=== PATIENT | male | born 1980 | race Caucasian/White ===

== ENCOUNTER 2022-01-08 09:29 | Emergency (ER) | payer OTHER, SELFPAY ==
[2022-01-08 09:36] VITALS: BP 160/88; PULSE 79; RESP 18; TEMP 37.2; O2SAT 97
--- NOTE | 2022-01-08 10:03 | W.ED.GENAD ---
Discharge Plan Disposition Patient Disposition: [facility] Condition: Stable Discharge Details Clinical Impression: Uveitis Primary Care Provider: None,None ED Provider: Yoko Kraus Home Meds and New Rx's Prescriptions: No Action buprenorphine HCl [Subutex] 8 mg Tablet, Sublingual 16 mg SUBLINGUAL DAILY Discharge Instructions Instructions: Antibiotic/Anti-inflammatory Combinations (Into the eye), Iritis (ED) Additional Instructions: Your exam appears more consist with inflammatory cause over infectious etiology. We will have you reevaluated by eye doctor. You will need to apply the steroid and antibiotic four times daily until reevaluation. Please encouarge hydration. Tylenol and/or Ibuprofen as needed to help with discomfort. If you develop headache, fevers/chills, rash, swelling or other new/worsening symptoms please seek care urgently once again. Discharge Data Discharge Date/Time-TO BE ENTERED AT DEPARTURE: 01/08/22 12:24 Medical Decision Making Patient is a pleasant 41-year-old gentleman, currently inmate and accompanied by correctional officers, presented with chief complaint of right pain. He reports the pain began approximately 3 days ago. States that he felt foreign body sensation initially, believes it may have been a devin of paint on the desk. Restarted on antibiotics drop at the correctional facility. Despite this, patient reports the pain has continued to increase. He describes blurred vision and difficulty with vision associated with him not able to open the eye completely. Has not had any purulent discharge. No fevers or chills. No headaches. States that initially he felt steroids something on the upper lid that was irritating the eye. Tetanus up-to-date. On exam, patient appears uncomfortable. He is splinting the eye with clear discharge. Eye is injected fairly diffusely. The injection appears significant and includes entirety of the sclera. Extract movements are intact. No foreign body noted and the lower or upper lid with eversion. Tetracaine had minimal effect on patient's eye discomfort. We will perform visual acuity as well as obtain intraocular pressure. Patient has not had any trauma. No recent medication changes. No significant eye history. I find pathology leading to increased intraocular pressure less likely but with the significance of the erythema as well as persistent discomfort despite the tetracaine I do feel that this is appropriate. No surrounding erythema, swelling to suggest orbital cellulitis. More likely to be a corneal abrasion. Denies any chemical exposure. Will check intraocular pressure as well as fluorescein staining to look for any Aman sign or retained foreign body or abrasion, ulcer. Pressure 12.5. No fluorosceine uptake on exam, no FB or Aman sign. Injection spares the limbus. Most consistent with uveitis. Likely needs steroid drops. Will touch base with [facility] and schedule prompt f/u. Spoke with physician with [facility]. He advised that as there is no evidence of bacterial infection, moving forward with intraocular steroids would be appropriate. He recommended tobradex QID, f/u on Saturday. Spoke with correctional center medical staff. Unable to give the patient time/place secondary to current living situation and safety. Patient and I discussed conerns for uveitis and potential complications. He was started on the tobradex as recommended. Appointment made for him on Saturday with [facility] as was recommended. Strict return precautions discussed with patient as well as medical staff at correctional facility. Advised APAP and NSAId for discomfort. All of their questions and cncerns were addressed, he is in agreement with this plan. HPI General Date/Time Provider Initiated Documentation: 01/08/22 10:03. Limitations to Documentation: no limitations. Information obtained by: patient, police (correctional security officer, medical staff at residential) and RN notes reviewed. History of Present Illness 41 year old M presents to the emergency department with the chief complaint of right eye pain, tearing, injection, described as severe, with intensity rated at 9. Quality is described as burning, and is localized to the eyes and right. Patient reports no radiation. Patient started experiencing this day(s) and it has been constant. No relieving factors improve symptom(s), No exacerbating factors reported . Patient notes denies chest pain, diaphoresis, fever/chills, headaches, malaise, nausea/vomiting, rash and shortness of breath. Patient did receive the following treatments prior to arrival, other (abx) Related Data Home Medications Medication Instructions Recorded Confirmed buprenorphine HCl 8 mg sublingual 16 mg sublingual DAILY 01/08/22 01/08/22 tablet Allergies Allergy/AdvReac Type Severity Reaction Status Date / Time No Known Allergies Allergy Unverified 01/08/22 10:26 General Stated Complaint: EyeProblem SUZETTE: 4 Review of Systems Constitutional Constitutional: Reports as per HPI, Denies chills, Denies fatigue and Denies headache(s) Eyes Eyes: Reports as per HPI ENT Ears, Nose, Mouth, and Throat: Denies headache(s) Cardiovascular Cardiovascular: Reports as per HPI, Denies chest pain and Denies lightheadedness Respiratory Respiratory: Denies cough Integumentary/Breasts Skin/Breast: Reports as per HPI, Denies rash, Denies skin pain and Denies skin swelling Neurologic Neurologic: Denies headache(s) Endocrine Endocrine: Denies fatigue PFSH All Active Problems (Updated 01/08/22 @ 12:10 by ANGE Mckeon) Uveitis (Acute) Social History Smoking/Tobacco Use Status: Former Tobacco Use Quit Date: 12/07/21 Smoking risk assessment performed?: Yes Alcohol Intake: former Drug use: Current Sobriety Substance use type: former substance user, marijuana, crack/cocaine and heroin Do you feel safe at home: Yes Do you feel safe in your relationship?: Yes Additional Social history: patient is from the residential at this time. Exam Const General: cooperative, not healthy appearing, comfortable, no acute distress, well developed and well groomed Nutritional Appearance: average body habitus and well nourished Orientation: alert, awake and oriented x3 HENMT Head: normal to inspection, normocephalic and atraumatic Ears: hearing grossly normal bilaterally and external ears normal General nose exam: external nose normal and nares normal Face and sinus: normal facial exam and face symmetric Mouth: oral mucosae normal, lip normal and moist mucous membranes Eyes Visual Orellana: normal visual orellana by confrontation Alignment and Position: alignment normal and position normal Periorbital: periorbital findings normal Eyelids: eyelids normal Conjunctivae: conjunctival abnormality right conjunctival injection; without discharge Sclera: scleral abnormality right scleral injection Cornea: corneas abnormal on the right fluorescein used; without opacification, no contact lens present, without diffuse punctate uptake, without dendrites present, without edema and with no foreign body noted and fluorescein used Pupils: PERRL, normal by confrontation and accommodation normal EOM: EOM intact bilaterally Resp Effort & Inspection: normal respiratory effort, able to speak in complete sentences and no respiratory distress Skin General skin exam: no rashes or lesions noted Neuro General: patient alert, patient awake and patient oriented x3 Cranial Nerves: CN's II-XI intact bilaterally Cognition: normal cognition Speech: speech normal Gait: normal gait Psych Appearance: grossly normal and well kempt Mental Status: mental status grossly normal Speech and Movement: speech and movement normal Course Vital Signs Vital signs: Vital Signs Temperature 37.2 C 01/08/22 09:36 Pulse 79 01/08/22 09:36 Respiratory Rate 18 01/08/22 09:36 Blood Pressure 160/88 H 01/08/22 09:36 Pulse Oximetry 97 01/08/22 09:36 Temperature 37.2 C 01/08/22 09:36 Temperature Source Temporal Artery Scan 01/08/22 09:36 Pulse 79 01/08/22 09:36 Respiratory Rate 18 01/08/22 09:36 Blood Pressure 160/88 H 01/08/22 09:36 Blood Pressure Position Sitting 01/08/22 09:36 Pulse Oximetry 97 01/08/22 09:36 Oxygen Delivery Method Room Air 01/08/22 09:36 Oxygen Flow Rate 0 01/08/22 09:36
[2022-01-08] MEDS: Acetaminophen 500 MG TAB 1000 MG PO (10:32)
[2022-01-08] MEDS: Ibuprofen 600 MG TAB PO (10:33)
[2022-01-08] MEDS: Tetracaine 0.5% 4 ML BTL OP (10:33)
[2022-01-08] MEDS: Fluorescein STRIPS 100/BOX 1 MG OP (10:34)
[2022-01-08 12:17] VITALS: BP 160/88; PULSE 79; RESP 18; TEMP 37.2; O2SAT 97
== END 2022-01-08 12:24 | disposition home or self-care (01) ==
PROVIDERS: Emergency Provider Physician Assistant
DX: H20.9 Unspecified iridocyclitis (principal); Z87.891 Personal history of nicotine dependence
CPT/HCPCS: 99283; 99284